=== PATIENT | female | born 1980 | race Caucasian/White ===

== ENCOUNTER 2024-08-17 14:13 | Inpatient (IN) | payer OTHER ==
[~2024-08-17] VITALS: Ht 172.7 cm; Wt 56.7 kg
[2024-08-17 15:18] LABS: BASOPHILS % (AUTO) 0.8 % (0.0-2.0); EOSINOPHILS # (AUTO) 0.1 K/uL (0.0-0.7); EOSINOPHILS % (AUTO) 1.5 % (0.0-6.0); HEMATOCRIT 29 % (33-45); HEMOGLOBIN 9.4 g/dL (11.5-14.8); LYMPHOCYTES # (AUTO) 1.6 K/uL (0.8-4.8); LYMPHOCYTES % (AUTO) 35.5 % (20.0-44.0); MEAN CORPUSCULAR HEMOGLOBIN 27 PG (26.0-33.0); MEAN CORPUSCULAR HGB CONC 33 g/dl (31.0-36.0); MEAN CORPUSCULAR VOLUME 83 fL (82-100); MONOCYTES # (AUTO) 0.3 K/uL (0.1-1.30); MONOCYTES % (AUTO) 7.3 % (2.0-12.0); NEUTROPHILS # (AUTO) 2.5 K/uL (1.8-8.9); NEUTROPHILS % (AUTO) 54.9 % (43.0-81.0); PLATELET COUNT (AUTO) 229 K/uL (150-450); RED BLOOD CELL COUNT(AUTO) 3.45 MIL/uL (4.0-5.2); RED CELL DISTRIBUTION WIDTH 14.8 % (11.5-15.0); WHITE BLOOD COUNT (AUTO) 4.6 K/uL (4.3-11.0)
[2024-08-17 15:30] LABS: INR 1.53 (0.91-1.10); PARTIAL THROMBOPLASTIN TIME 49.9 SEC (24.3-34.3); PROTHROMBIN TIME 15.5 SECS (9.2-11.1)
[2024-08-17 15:47] LABS: CARBON DIOXIDE 29 mmol/L (21-32); CHLORIDE 104 mmol/L (98-107); CREATININE 0.7 mg/dL (0.6-1.3); GLUCOSE 74 mg/dL (74-106); POTASSIUM 3.9 mmol/L (3.5-5.1); SODIUM SERUM 138 mmol/L (136-145); UREA NITROGEN, BLOOD 14 mg/dL (7-18)
[2024-08-17 15:53] LABS: ALANINE AMINOTRANSFERASE 26 U/L (12-78); ALBUMIN 3.6 g/dL (3.4-5.0); ALKALINE PHOSPHATASE 55 U/L (46-116); ASPARTATE AMINOTRANSFERASE 27 U/L (15-37); BILIRUBIN,DIRECT 0.1 mg/dL (0.0-0.2); BILIRUBIN,TOTAL 0.3 mg/dL (0.2-1.0); LIPASE 28 U/L (16-77); TOTAL PROTEIN, SERUM 7.2 g/dL (6.4-8.2)
[2024-08-17 16:46] LABS: IRON, SERUM 18 ug/dl (50-175); TOTAL IRON BINDING CAPACITY 395 ug/dl (250-450)
[2024-08-17 16:59] LABS: FERRITIN 16 ng/mL (8-388)
[2024-08-17] MEDS ORDERED: ONDANSETRON HCL/PF 4 MG/2 ML VIAL ONE (17:35)
[2024-08-17] MEDS ORDERED: MORPHINE SULFATE INJ 4 MG/ML DISP.SYRIN ONE (17:35)
[2024-08-17] MEDS: ONDANSETRON HCL/PF - ER 4 MG/2 ML VIAL IV ONE (17:39)
[2024-08-17] MEDS: MORPHINE SULFATE INJ 2 MG/ML DISP.SYRIN IV ONE ×2 (17:44→23:38)
[2024-08-17 19:10] VITALS: O2SAT 99
[2024-08-17] MEDS ORDERED: Z GUARD REMEDY 4 OZ OINT TP PRN (19:30)
[2024-08-17 20:00] VITALS: BP 112/75; TEMP 98.1; O2SAT 97
[2024-08-17] MEDS: SOD FERRIC GLUC 125 MG in IV NS 0.9% 100 ML IV SCH (20:54)
[2024-08-17] MEDS: diphenhydrAMINE HCL 25 MG CAPSULE PO PRN (21:23)
[2024-08-17 22:19] LABS: IRON, SERUM 74 ug/dl (50-175); TOTAL IRON BINDING CAPACITY 382 ug/dl (250-450)
[2024-08-17] MEDS: ACETAMINOPHEN 325 MG TABLET PO PRN (22:22)
[2024-08-17 22:36] LABS: FERRITIN 17 ng/mL (8-388)
[2024-08-17] MEDS: diphenhydrAMINE HCL 50 MG/ML VIAL IV PRN (23:39)
[2024-08-17] MEDS ORDERED: HYDR-3980 PO (23:55)
[2024-08-17 23:57] LABS: HEMATOCRIT 30 % (33-45); HEMOGLOBIN 9.6 g/dL (11.5-14.8); MEAN CORPUSCULAR HEMOGLOBIN 27 PG (26.0-33.0); MEAN CORPUSCULAR HGB CONC 32 g/dl (31.0-36.0); MEAN CORPUSCULAR VOLUME 84 fL (82-100); PLATELET COUNT (AUTO) 232 K/uL (150-450); RED BLOOD CELL COUNT(AUTO) 3.53 MIL/uL (4.0-5.2); RED CELL DISTRIBUTION WIDTH 14.8 % (11.5-15.0); WHITE BLOOD COUNT (AUTO) 4.5 K/uL (4.3-11.0)
[2024-08-18] VITALS: BP 121/72; TEMP 97.9; O2SAT 98
[2024-08-18] MEDS ORDERED: LUBI24CA5 PO (00:29)
[2024-08-18] MEDS ORDERED: UBRO50TA PO (00:29)
[2024-08-18] MEDS ORDERED: HYDR50SY PO (00:29)
[2024-08-18] MEDS ORDERED: PREG150C PO (00:29)
[2024-08-18] MEDS ORDERED: IPRA3AMP22 IH (00:29)
[2024-08-18] MEDS ORDERED: ONDA4TAB5 PO (00:29)
[2024-08-18] MEDS ORDERED: KETO15CR2 TP (00:29)
[2024-08-18] MEDS ORDERED: METO25TA4 PO (00:29)
[2024-08-18] MEDS ORDERED: ARIP10TA9 PO (00:29)
[2024-08-18] MEDS ORDERED: OMEP40CA21 PO (00:29)
[2024-08-18] MEDS ORDERED: SERT100T PO (00:29)
[2024-08-18] MEDS ORDERED: RIVA15TA PO (00:29)
[2024-08-18] MEDS ORDERED: RIZA5TAB83 PO (00:29)
[2024-08-18] MEDS ORDERED: FEXO-65 PO (00:29)
[2024-08-18] MEDS ORDERED: SUCR1ORA15 PO (00:29)
[2024-08-18] MEDS ORDERED: CLON2TAB11 PO (00:29)
[2024-08-18] MEDS ORDERED: MIRT-73 PO (00:29)
[2024-08-18] MEDS ORDERED: TIZA-180 PO (00:29)
[2024-08-18] MEDS ORDERED: MEMA10TA PO (00:29)
[2024-08-18] MEDS ORDERED: clonazePAM 1 MG TABLET PO PRN (01:00)
[2024-08-18 02:48] VITALS: BP_SYST 115; BP_SYST 121; BP_SYST 95; BP_DIAS 72; BP_DIAS 76; BP_DIAS 77
[2024-08-18 04:00] VITALS: BP 128/89; TEMP 98.1; O2SAT 98
[2024-08-18 04:36] LABS: HEMATOCRIT 27 % (33-45); HEMOGLOBIN 8.9 g/dL (11.5-14.8); MEAN CORPUSCULAR HEMOGLOBIN 28 PG (26.0-33.0); MEAN CORPUSCULAR HGB CONC 33 g/dl (31.0-36.0); MEAN CORPUSCULAR VOLUME 83 fL (82-100); PLATELET COUNT (AUTO) 217 K/uL (150-450); RED BLOOD CELL COUNT(AUTO) 3.24 MIL/uL (4.0-5.2); RED CELL DISTRIBUTION WIDTH 14.9 % (11.5-15.0); WHITE BLOOD COUNT (AUTO) 4.9 K/uL (4.3-11.0)
[2024-08-18 05:20] LABS: APPEARANCE,URINE CLOUDY (CLEAR); COLOR,URINE AMBER (YELLOW)
[2024-08-18] MEDS: MORPHINE SULFATE INJ 2 MG/ML DISP.SYRIN IV ONE (05:24)
[2024-08-18 05:33] LABS: BILIRUBIN,URINE NEGATIVE (NEGATIVE); BLOOD, URINE 3+ Ery/uL (NEGATIVE); KETONES,URINE TRACE mg/dL (NEGATIVE); LEUKOCYTE ESTERASE ,URINE NEGATIVE (NEGATIVE); NITRITE, URINE NEGATIVE (NEGATIVE); PROTEIN,URINE TRACE mg/dl (NEGATIVE); UGLUCOSE NEGATIVE (NEGATIVE); UROBILINOGEN,URINE 0.2 EU/dL (0.2)
[2024-08-18 06:29] LABS: ADD URINE CULTURE NO; BACTERIA,URINE Few /HPF (None Seen); RBC,URINE 21-50 /HPF (0-2); SQUAMOUS EPITHELIAL CELL,UR Few /HPF (None Seen)
[2024-08-18 06:30] LABS: WBC,URINE NONE SEEN /HPF (0-3)
[2024-08-18 06:58] LABS: BASOPHILS % (AUTO) 0.8 % (0.0-2.0); EOSINOPHILS # (AUTO) 0.1 K/uL (0.0-0.7); EOSINOPHILS % (AUTO) 1.6 % (0.0-6.0); HEMATOCRIT 27 % (33-45); HEMOGLOBIN 8.7 g/dL (11.5-14.8); LYMPHOCYTES # (AUTO) 1.2 K/uL (0.8-4.8); LYMPHOCYTES % (AUTO) 30.2 % (20.0-44.0); MEAN CORPUSCULAR HEMOGLOBIN 27 PG (26.0-33.0); MEAN CORPUSCULAR HGB CONC 32 g/dl (31.0-36.0); MEAN CORPUSCULAR VOLUME 83 fL (82-100); MONOCYTES # (AUTO) 0.3 K/uL (0.1-1.30); MONOCYTES % (AUTO) 8.1 % (2.0-12.0); NEUTROPHILS # (AUTO) 2.4 K/uL (1.8-8.9); NEUTROPHILS % (AUTO) 59.3 % (43.0-81.0); PLATELET COUNT (AUTO) 201 K/uL (150-450); RED BLOOD CELL COUNT(AUTO) 3.22 MIL/uL (4.0-5.2); RED CELL DISTRIBUTION WIDTH 14.4 % (11.5-15.0)
[2024-08-18 07:28] LABS: CALCIUM, SERUM 8.1 mg/dL (8.5-10.1); CREATININE 0.7 mg/dL (0.6-1.3); PHOSPHORUS 2.6 mg/dL (2.5-4.9); POTASSIUM 3.7 mmol/L (3.5-5.1)
[2024-08-18] MEDS: PANTOPRAZOLE 40 MG TABLET.DR PO SCH (08:47)
[2024-08-18] MEDS: ONDANSETRON HCL/PF 4 MG/2 ML VIAL IVP PRN (09:02)
[2024-08-18] MEDS: BACITRACIN/POLYMYXIN B 15 GM TUBE TP SCH (09:30)
[2024-08-18 11:22] LABS: HEMATOCRIT 26 % (33-45); HEMOGLOBIN 8.7 g/dL (11.5-14.8); MEAN CORPUSCULAR HEMOGLOBIN 28 PG (26.0-33.0); MEAN CORPUSCULAR HGB CONC 33 g/dl (31.0-36.0); MEAN CORPUSCULAR VOLUME 83 fL (82-100); PLATELET COUNT (AUTO) 195 K/uL (150-450); RED BLOOD CELL COUNT(AUTO) 3.15 MIL/uL (4.0-5.2); RED CELL DISTRIBUTION WIDTH 14.3 % (11.5-15.0); WHITE BLOOD COUNT (AUTO) 3.6 K/uL (4.3-11.0)
[2024-08-18] MEDS: MORPHINE SULFATE INJ 2 MG/ML DISP.SYRIN IV PRN (15:37)
[2024-08-18] MEDS: HYDROCODONE/APAP 10/325MG TABLET PO SCH (17:38)
[2024-08-18] MEDS: PREGABALIN 25 MG CAPSULE PO SCH (17:39)
[2024-08-18 17:52] LABS: HEMOGLOBIN 8.7 g/dL (11.5-14.8)
[2024-08-18 20:00] VITALS: BP 128/96; TEMP 97.5; O2SAT 96
[2024-08-18] MEDS: clonazePAM 1 MG TABLET PO SCH (22:54)
[2024-08-18] MEDS: MIRTAZAPINE SOLUTAB 15 MG/UDTABLET TAB.RAPDIS PO SCH (22:54)
[2024-08-19] VITALS: BP 106/67; TEMP 97.9; O2SAT 98
[2024-08-19 04:00] VITALS: BP 104/77; TEMP 97.7; O2SAT 95
[2024-08-19 07:00] VITALS: BP 100/73; TEMP 98.2; O2SAT 97
[2024-08-19 07:00] LABS: EOSINOPHILS # (AUTO) 0.1 K/uL (0.0-0.7); EOSINOPHILS % (AUTO) 2.4 % (0.0-6.0); HEMATOCRIT 30 % (33-45); HEMOGLOBIN 9.6 g/dL (11.5-14.8); LYMPHOCYTES # (AUTO) 1.1 K/uL (0.8-4.8); LYMPHOCYTES % (AUTO) 32.7 % (20.0-44.0); MEAN CORPUSCULAR HEMOGLOBIN 27 PG (26.0-33.0); MEAN CORPUSCULAR HGB CONC 32 g/dl (31.0-36.0); MEAN CORPUSCULAR VOLUME 84 fL (82-100); MONOCYTES # (AUTO) 0.2 K/uL (0.1-1.30); MONOCYTES % (AUTO) 7.3 % (2.0-12.0); NEUTROPHILS # (AUTO) 1.8 K/uL (1.8-8.9); NEUTROPHILS % (AUTO) 56.6 % (43.0-81.0); PLATELET COUNT (AUTO) 214 K/uL (150-450); RED BLOOD CELL COUNT(AUTO) 3.57 MIL/uL (4.0-5.2); RED CELL DISTRIBUTION WIDTH 14.9 % (11.5-15.0); WHITE BLOOD COUNT (AUTO) 3.2 K/uL (4.3-11.0)
[2024-08-19 07:01] LABS: CALCIUM, SERUM 8.3 mg/dL (8.5-10.1); CREATININE 0.6 mg/dL (0.6-1.3); MAGNESIUM 2.2 mg/dL (1.8-2.4); POTASSIUM 3.8 mmol/L (3.5-5.1)
[2024-08-19] MEDS: ARIPIPRAZOLE 5 MG TABLET PO SCH (09:14)
[2024-08-19] MEDS: METOPROLOL SUCCINATE 25 MG TAB.SR.24H PO SCH (09:15)
[2024-08-19] MEDS: SERTRALINE HCL 50 MG TABLET PO SCH (09:16)
[2024-08-19] MEDS ORDERED: GADOTERATE MEGLUMINE 5 MMOL/10 ML VIAL IV ONE (09:17)
[2024-08-19 16:00] VITALS: BP 102/70; TEMP 98.4; O2SAT 98
[2024-08-20 06:11] LABS: HOMOCYSTEINE, PLASMA 9.8 umol/L (0.0-14.5)
[2024-08-20 08:07] LABS: CANCER AG, 125 14.3 U/mL (0.0-38.1)
[2024-08-20 23:07] LABS: *ANTITHROMBIN III AG 84 % (72-124); *DILUTE PROTHROMBIN TIME (dPT) 55.7 sec (0.0-47.6); *PTT-LA MIX 50.7 sec (0.0-40.5); *dPT CONFIRM RATIO 0.66 Ratio (0.00-1.34); *dRVVT 88.6 sec (0.0-47.0); ANTITHROMBIN III ACTIVITY 173 % (75-135); FACTOR VIII ACTIVITY 62 % (56-140); PROTEIN C ACTIVITY 90 % (73-180)
== END 2024-08-19 17:46 | disposition home or self-care (01) | DRG 532 ==
LOC: ER 14:20 → TELE 18:19 → MED 08-19
PROVIDERS: ADMIT Nurse Practitioner Acute Care; ATTEND Nurse Practitioner Acute Care
DX: N92.0 Excessive and frequent menstruation with regular cycle (principal); I82.621 Acute embolism and thrombosis of deep veins of right upper extremity; C78.00 Secondary malignant neoplasm of unspecified lung; N80.9 Endometriosis, unspecified; Z86.718 Personal history of other venous thrombosis and embolism; Z79.01 Long term (current) use of anticoagulants; Z90.721 Acquired absence of ovaries, unilateral; Z90.711 Acquired absence of uterus with remaining cervical stump; Z88.0 Allergy status to penicillin; Z88.1 Allergy status to other antibiotic agents; Z88.5 Allergy status to narcotic agent; Z88.8 Allergy status to other drugs, medicaments and biological substances; Z91.048 Other nonmedicinal substance allergy status; D50.9 Iron deficiency anemia, unspecified; E53.8 Deficiency of other specified B group vitamins; N83.201 Unspecified ovarian cyst, right side; N83.202 Unspecified ovarian cyst, left side; C58 Malignant neoplasm of placenta; Z79.51 Long term (current) use of inhaled steroids; Z79.899 Other long term (current) drug therapy
CPT/HCPCS: 36415; 71045-TC; 72100-TC; 72197-TC; 76856-TC; 80048-TC; 80061-TC; 80076-TC; 81001; 81241; 82607-TC; 82728-TC; 82784; 83090; 83540-TC; 83690-TC; 83735-TC; 84100-TC; 84484-TC; 85025-TC; 85027-TC; 85240; 85300; 85301; 85303; 85385-TC; 85613; 85670; 85705; 85730-TC; 85732; 86147; 86304; 86850-TC; 93970-TC; 98960; A4223; A9575; G0378; J1200; J2270; J2405; J2916; J7030; J7050; Q0163